=== PATIENT | female | born 1990 | race Two or more races ===

== ENCOUNTER 2024-07-01 17:15 | Emergency (ER) | payer OTHER ==
[~2024-07-01] VITALS: Ht 167.6 cm; Wt 45.4 kg
[2024-07-01] MEDS ORDERED: GUAI120L56 PO (18:34)
[2024-07-01 18:39] VITALS: BP 90/52; TEMP 98; O2SAT 97
[2024-07-02] MEDS ORDERED: GUAI120L56 PO (16:22)
== END 2024-07-01 18:40 | disposition home or self-care (01) ==
LOC: ER 17:24
DX: J18.9 Pneumonia, unspecified organism (principal); R05.9 Cough, unspecified
CPT/HCPCS: 71045-TC